=== PATIENT | female | born 1990 | race Caucasian/White ===

== ENCOUNTER 2019-05-25 23:34 | Emergency (ER) | payer SELFPAY ==
[~2019-05-25] VITALS: Ht 154.9 cm; Wt 68.0 kg
[2019-05-25 23:39] VITALS: BP 153/78
== END 2019-05-26 00:10 ==
LOC: MED 23:34
DX: S09.8XXA Other specified injuries of head, initial encounter (principal); F17.210 Nicotine dependence, cigarettes, uncomplicated; Z02.89 Encounter for other administrative examinations; Y04.0XXA Assault by unarmed brawl or fight, initial encounter; Y93.89 Activity, other specified; Y92.89 Other specified places as the place of occurrence of the external cause; Y99.8 Other external cause status
CPT/HCPCS: 99283